=== PATIENT | male | born 1955 | race Caucasian/White ===

== ENCOUNTER 2019-09-05 20:49 | Inpatient (IN) | payer OTHER, SELFPAY ==
[2019-09-05 21:26] LABS: Absolute Lymphocytes (CBC) 0.8 K/uL (0.7-4.9); Basophils % 0.1 % (0-1.3); Hematocrit 40.5 % (39.6-49.0); Lymphocytes % 4.4 % (15.3-44.8); MPV 8.1 fL (7.6-11.3); RBC Red Blood Cell Count 4.55 M/uL (4.33-5.43)
--- NOTE | 2019-09-05 21:33 | RAD REPORT ---
EXAM DESCRIPTION: CT - CTHCSPWOC - 09/05/2019 9:20 pm CLINICAL HISTORY: Trauma, head and neck injury. trauma COMPARISON: No comparisons TECHNIQUE: Axial 5 mm thick images of the head were obtained. Axial 2 mm thick images of the cervical spine were obtained with sagittal and coronal reconstruction images generated and reviewed. All CT scans are performed using dose optimization technique as appropriate and may include automated exposure control or mA/KV adjustment according to patient size. FINDINGS: CT HEAD WITHOUT CONTRAST: No acute hemorrhage, hydrocephalus or extra-axial collection is identified.No areas of brain edema or midline shift. Moderate chronic sinusitis left maxillary antrum.The calvarium is intact. Moderate left-sided scalp h ematoma. CT CERVICAL SPINE WITHOUT CONTRAST: No fracture or subluxation.Mild multilevel cervical degenerative changes seen mid cervical levels.No prevertebral soft tissues swelling is identified. IMPRESSION: No acute intracranial or cervical spine findings.
[2019-09-05 21:36] LABS: Potassium 4.3 mmol/L (3.5-5.1)
[2019-09-05 21:52] LABS: Blood Morphology Comment NOT SEEN (NOT SEEN); Platelet Estimate ADEQ; Urine White Blood Cell Casts OK
[2019-09-05] MEDS ORDERED: ACETAMINOPHEN 500 MG TAB ONE (22:42)
[2019-09-06] MEDS ORDERED: ONDANSETRON 4 MG/2 ML VIAL ONE (01:18)
[2019-09-06] MEDS ORDERED: MORPHINE 4 MG/ML SYR ONE (01:18)
--- NOTE | 2019-09-06 03:34 | P.HP ---
Certification for Inpatient Patient admitted to: Inpatient With expected LOS: >2 Midnights Practitioner: I am a practitioner with admitting privileges, knowledge of patient current condition, hospital course, and medical plan of care. Services: Services provided to patient in accordance with Admission requirements found in Title 42 Section 412.3 of the Code of Federal Regulations Patient History Date of Service: 09/06/19 Reason for admission: fall History of Present Illness: 64-year-old gentleman with a history of hypertension was brought to the emergency department after a fall at home. Patient reports falling from a 6 foot height, landed on his left side, sustained bruise to the left forehead and pain in the left left. He stated he could not get up and walk. She crawled to call 911. EMS brought him to the emergency department. Imaging done in the ED showed multiple left rib fractures-4th through 7 th ribs, no pneumothorax. Patient not requiring oxygen. He was complaining of severe pain after IV opioid injections in the ED. Patient is admitted for pain control. - Past Medical/Surgical History -: Hypertension -: Hyperlipidemia -: Hernia surgery - Family History Family History: Reviewed- Non-Contributory - Social History Smoking Status: Never smoker Alcohol use: No CD- Drugs: No Place of Residence: Home Review of Systems Other: Except as documented, all other systems reviewed and negative. Physical Examination - Physical Exam General: Alert, Oriented x3, Moderate distress (Due to pain) HEENT: Mucous membr. moist/pink, Sclerae nonicteric Neck: Supple, JVD not distended Respiratory: Clear to auscultation bilaterally, Diminished, Other (No crackles) Cardiovascular: No edema, Regular rate/rhythm, Normal S1 S2 Capillary refill: <2 Seconds Gastrointestinal: Normal bowel sounds, Soft and benign, Non-distended, No tenderness Musculoskeletal: No swelling, No erythema Integumentary: No rashes, No erythema Neurological: Normal speech, Normal strength at 5/5 x4 extr, Cranial nerves 3-12 intact - Studies Laboratory Data (last 24 hrs) 09/05/19 21:00: WBC 17.1 H, Hgb 13.7, Hct 40.5, Plt Count 214 09/05/19 21:00: Sodium 140, Potassium 4.3, BUN 25 H, Creatinine 1.27, Glucose 161 H Assessment and Plan - Problems (Diagnosis) (1) Fall Current Visit: Yes Status: Acute (2) Rib fractures Current Visit: Yes Status: Acute (3) Hypertension Current Visit: Yes Status: Acute (4) Uncontrolled pain Current Visit: Yes Status: Acute - Plan Admit to the medical floor. IV hydration with normal saline IV Dilaudid p.r.n. for pain Supplemental oxygen as needed. Serial chest x-ray to assess for contusion. Chest physiotherapy-incentive spirometry. - Advance Directives Does patient have a Living Will: No Does patient have a Durable POA for Healthcare: No
[2019-09-06] MEDS ORDERED: ALBUTEROL 2.5 MG/3 ML NEB SOL NEB PRN (05:27)
[2019-09-06] MEDS ORDERED: ACETAMINOPHEN 500 MG TAB PO PRN (05:27)
[2019-09-06] MEDS ORDERED: ONDANSETRON 4 MG/2 ML VIAL IV PRN (05:27)
[2019-09-06] MEDS: NA CHLORIDE 0.9% 1,000 ML IV SCH ×2 (05:55→17:52)
[2019-09-06] MEDS: HYDROMORPHONE HCL 2 MG/ML inj IV PRN ×3 (05:55→17:52)
[2019-09-06 06:58] VITALS: BMI 28.6
--- NOTE | 2019-09-06 12:47 | RAD REPORT ---
EXAM DESCRIPTION: CT - Chest Abdomen Pelvis W Cont - 09/06/2019 3:08 am CLINICAL HISTORY: The patient is 64 years old and is Male; TRAUMA TECHNIQUE: Axial computed tomography images of the chest, abdomen and pelvis with intravenous contra st. Sagittal and coronal reformatted images were created and reviewed. This CT exam was performed using one or more of the following dose reduction techniques: automated exposure control, adjustme nt of the mA and/or kV according to patient size, and/or use of iterative reconstruction technique. DLP: 1699 mGy*cm COMPARISON: None. FINDINGS: CHEST: LUNGS: Dependent subsegmental atelectasis versus scarring bilaterally. Left lung base contusions c ould have similar imaging characteristics. No focal consolidation. PLEURAL SPACE: Mild bibasilar pleural thickening. No pleural effusion or pneumothorax. HEART: Unremarkable. No cardiomegaly. No significant pericardial effusion. THYROID: Visualized thyroid is normal. ABDOMEN: LIVER: Mild hepatic steatosis. GALLBLADDER AND BILE DUCTS: Unremarkable. No calcified stones. No ductal dilation. PANCREAS: Unremarkable. No ductal dilation. No mass. SPLEEN: Unremarkable. No splenomegaly. ADRENALS: Unremarkable. No mass. KIDNEYS AND URETERS: Unremarkable. No hydronephrosis. No solid mass. STOMACH AND BOWEL: Trace sigmoid colon diverticulosis. No acute diverticulitis. No obstruction or mucosal thickening. PELVIS: APPENDIX: The appendix is seen and is within normal limits. BLADDER: Unremarkable. No mass. REPRODUCTIVE: Unremarkable as visualized. CHEST, ABDOMEN and PELVIS: INTRAPERITONEAL SPACE: Unremarkable. No significant fluid collection. No free air. BONES/JOINTS: Minimally displaced fractures of the lateral left fourth, fifth, sixth, and seventh ribs. No dislocation. Multilevel degenerative degenerative disease with scattered vacuum phenomenon. Small anterolisthesis of L5 on S1. SOFT TISSUES: Prior left inguinal hernia repair. VASCULATURE: Unremarkable. No aortic aneurysm. LYMPH NODES: Unremarkable. No enlarged lymph nodes. IMPRESSION: 1. Acute minimally displaced fractures of the lateral left fourth through seventh ribs . Bibasilar atelectasis, scarring or contusions. 2. No posttraumatic abdominal or pelvic abnormality. 3. Trace sigmoid colon diverticulosis. No acute diverticulitis. 4. Mild hepatic steatosis. Electronically signed by: Franco Tony DO 09/05/2019 10:43 PM CDT Due to temporary technical issues with the PACS/Fluency reporting system, reports are being signed by the in house radiologist without review as a courtesy to ensure prompt reporting. The interpreting r adiologist is fully responsible for the content of the report.
[2019-09-06 14:26] LABS: Urine Appearance CLEAR; Urine Bilirubin NEGATIVE (NEG); Urine Blood NEGATIVE (NEG); Urine Color YELLOW; Urine Glucose NEGATIVE (NEG); Urine Microscopic Reflex NO UMIC; Urine Protein NEGATIVE (NEG); Urine Specific Gravity >=1.030 (1.005-1.030); Urine Urobilinogen 0.2 mg/dL (0.2-1.0); Urine pH 5.5 (5.0-7.0)
[2019-09-07] MEDS: NA CHLORIDE 0.9% 1,000 ML IV SCH ×3 (01:38→20:03)
[2019-09-07 06:31] LABS: Absolute Lymphocytes (CBC) 1.2 K/uL (0.7-4.9); Basophils % 0.3 % (0-1.3); Hematocrit 34.2 % (39.6-49.0); Lymphocytes % 14.6 % (15.3-44.8); MPV 8.1 fL (7.6-11.3); RBC Red Blood Cell Count 3.86 M/uL (4.33-5.43)
[2019-09-07 06:39] LABS: Magnesium 2.5 mg/dL (1.8-2.4); Phosphorus 2.6 mg/dL (2.5-4.9)
[2019-09-07] MEDS: HYDROMORPHONE HCL 2 MG/ML inj IV PRN ×3 (07:18→16:28)
--- NOTE | 2019-09-07 07:44 | RAD REPORT ---
EXAM DESCRIPTION: RAD - Chest Single View - 09/07/2019 6:38 am CLINICAL HISTORY: Follow up rib fractures, shortness of breath COMPARISON: CT chest imaging September 04 TECHNIQUE: AP portable chest image was obtained 09/07/2019 6:38 am . FINDINGS: Lung volumes are relatively low. No pulmonary contusion seen. No focal lung parenchymal pr ocess seen. Heart and vasculature are normal. No pneumothorax has developed. No new rib abnormality s een. Rib detail is limited on portable imaging. No acute aortic findings suspected. IMPRESSION: No pneumothorax has developed. No pulmonary contusion or acute lung parenchymal process.
[2019-09-07] MEDS ORDERED: TELMISARTAN PO SCH (09:00)
[2019-09-07] MEDS: CITALOPRAM 10 MG TABLET PO SCH (09:26)
--- NOTE | 2019-09-07 09:54 | P.PN ---
Subjective Date of Service: 09/07/19 Chief Complaint: fall Patient complained of persistent left-sided chest pain. He has difficulty getting up from bed due to the pain. Repeat chest x-ray reviewed: No contusion or pneumothorax. Physical Examination - Vital Signs Temperature: 98.7 F Blood Pressure: 141/82 Pulse: 75 Respirations: 16 Pulse Ox (%): 96 - Physical Exam General: Alert, In no apparent distress HEENT: Mucous membr. moist/pink Neck: Supple, JVD not distended Respiratory: Clear to auscultation bilaterally, Normal air movement Cardiovascular: No edema, Regular rate/rhythm, Normal S1 S2 Gastrointestinal: Normal bowel sounds, Soft and benign, No tenderness Musculoskeletal: No swelling, No erythema Neurological: Normal strength at 5/5 x4 extr Assessment And Plan - Current Problems (Diagnosis) (1) Fall Current Visit: Yes Status: Acute (2) Rib fractures Current Visit: Yes Status: Acute (3) Hypertension Current Visit: Yes Status: Acute (4) Uncontrolled pain Current Visit: Yes Status: Acute - Plan Continue IV hydration with normal saline IV Dilaudid p.r.n. for pain. Added IV Toradol today Supplemental oxygen as needed. Repeat chest x-ray: No contusion or pneumothorax Continue incentive spirometry. PT and OT to evaluate for mobility.
[2019-09-07] MEDS: LIDOCAINE 4% PATCH TOP SCH (13:02)
[2019-09-07] MEDS: KETOROLAC 30 MG/ML INJ IV PRN ×2 (13:03→20:04)
--- NOTE | 2019-09-07 18:28 | ER ---
Nurse's Notes [facility] Name: Freedom Castrejon Age: 64 yrs Sex: Male : 1955 Arrival Date: 09/05/2019 Time: 20:50 Bed 15 Private MD: Diagnosis: Multiple fractures of ribs, left side Presentation: 09/04 20:50 Chief complaint: EMS states: Fall from approx 5 ft off of a rooftop scaffolding, pt sg reports possible LOC he cant recall all of the events after falling, reports he was laying on the ground for 3-4 hours after fall until family/friend came home from work. C/O pain to the neck, left sided back, left sided rib pain left sided flank pain, abrasions and skin tears noted, reports having left anterior chest wall pain with pain to the abdomen as well, reports nausea. Care prior to arrival: IV initiated. 20 GA, in the left antecubital area. Care prior to arrival: Cervical collar in place. Placed on backboard. Mechanism of Injury: Fall from roof. Trauma event details: Injury occurred in the [facility], Injury occurred: at home. Injury occurred: September 05, 2019. 20:50 Acuity: SALINA 2 sg 20:50 Method Of Arrival: EMS: [facility] sg 21:10 Coronavirus screen: Proceed with normal triage. Ebola Screen: No symptoms or risks ea identified at this time. Initial Sepsis Screen: Does the patient meet any 2 criteria? No. Patient's initial sepsis screen is negative. Does the patient have a suspected source of infection? No. Patient's initial sepsis screen is negative. Risk Assessment: Do you want to hurt yourself or someone else? Patient reports no desire to harm self or others. Onset of symptoms was September 05, 2019. Trauma Activation: Alert Physician: ED Physician; Name: ; Notified At: ; Arrived At: Physician: General Surgeon; Name: ; Notified At: ; Arrived At: Physician: Radiology; Name: ; Notified At: ; Arrived At: Physician: Respiratory; Name: ; Notified At: ; Arrived At: Physician: Lab; Name: ; Notified At: ; Arrived At: Historical: - Allergies: 20:55 No Known Allergies; sg - Home Meds: 20:55 Blood pressure medication [Active]; sg - PMHx: 20:55 Hypertension; sg - Immunization history: Last tetanus immunization: unknown. - Social history:: Smoking status: Patient denies any tobacco usage or history of. Screenin:57 Abuse screen: Denies threats or abuse. Denies injuries from another. Tuberculosis sg screening: No symptoms or risk factors identified. 21:11 Nutritional screening: No deficits noted. Fall Risk IV access (20 points). ea Primary Survey: 20:50 NO uncontrolled hemorrhage observed. A: The patient is alert. Airway: patent, No sg supplemental oxygen in use on arrival. Oral cavity: clear. Breathing/Chest: Respiratory pattern: regular, Respiratory effort: spontaneous, unlabored, Breath sounds: clear, Chest inspection: symmetrical rise and fall of the chest. Circulation: Heart tones present. Pulses: palpable right radial artery, right popliteal artery, left radial artery and left popliteal artery. Skin color: pink, Skin temperature: warm, dry. Disability Alert. Exposure/Environment: All clothing and personal items were removed. Forensic evidence collection is not deemed to be indicated at this time. Items placed in patient belonging bag. There is no evidence of uncontrolled external bleeding. Obvious injury(ies) are noted at this time: neck, back, chest. 22:00 Reassessment Airway Airway Patent Breathing/Chest Respiratory pattern Regular ea Respiratory effort Spontaneous Unlabored Disability Alert. Secondary Survey: 20:50 HEENT: Head No injury/deformity Face No injury/deformity Eyes: No injury or deformity sg noted. Ears: clear bilaterally. Gastrointestinal: Abdomen is soft, bruised left lower quadrant Patient vomited prior to arrival. : No signs and/or symptoms were reported regarding the genitourinary system. Musculoskeletal: Circulation, motion, and sensation intact. Range of motion: intact in all extremities. Assessment: 21:00 General: Appears uncomfortable, Behavior is appropriate for age. Pain: Complains of ea pain in back. Neuro: Level of Consciousness is awake, alert, obeys commands, Oriented to person, place, situation. Cardiovascular: Patient's skin is warm and dry. Respiratory: Airway is patent Respiratory effort is even, unlabored, Respiratory pattern is regular, symmetrical. Derm: Bruising that is dark purple, on right arm, left arm, right leg and left leg. Musculoskeletal: Reports pain in back. 21:19 Reassessment: Returned from CT. ea 21:53 Reassessment: Patient and/or family updated on plan of care and expected duration. Pain ea level reassessed. Patient is alert, oriented x 3, equal unlabored respirations, skin warm/dry/pink. Pt taken to CT. 21:56 Reassessment: Daughter Alla . ea 22:37 Reassessment: Patient and/or family updated on plan of care and expected duration. Pain ea level reassessed. Patient is alert, oriented x 3, equal unlabored respirations, skin warm/dry/pink. 23:12 Reassessment: Patient and/or family updated on plan of care and expected duration. Pain ea level reassessed. Patient is alert, oriented x 3, equal unlabored respirations, skin warm/dry/pink. 09/05 00:39 Reassessment: Patient and/or family updated on plan of care and expected duration. Pain ea level reassessed. Patient is alert, oriented x 3, equal unlabored respirations, skin warm/dry/pink. 01:30 Reassessment: Patient and/or family updated on plan of care and expected duration. Pain ea level reassessed. Patient is alert, oriented x 3, equal unlabored respirations, skin warm/dry/pink. 02:00 Reassessment: Patient and/or family updated on plan of care and expected duration. Pain ea level reassessed. Pt resting with eyes closed, respirations even and unlabored. Chest expansions even and symmetrical. 03:00 Reassessment: Patient and/or family updated on plan of care and expected duration. Pain ea level reassessed. Pt resting with eyes closed, respirations even and unlabored, chest expansions even and and symmetrical. 04:49 Reassessment: Patient and/or family updated on plan of care and expected duration. Pain ea level reassessed. Patient is alert, oriented x 3, equal unlabored respirations, skin warm/dry/pink. Pt admitted to fourth floor, left ED via stretcher per tech. Pt tolerating well. Vital Signs: 09/04 20:57 BP 158 / 92; Pulse 90; Resp 20; Temp 98.1; Pulse Ox 100% on R/A; Weight 111.13 kg; sg Height 5 ft. 10 in. (177.80 cm); Pain 3/10; 21:54 BP 150 / 77; Pulse 88; Resp 18; Pulse Ox 98% on R/A; ea 22:37 BP 153 / 79; Pulse 89; Resp 18; Pulse Ox 100% on R/A; ea 23:12 BP 140 / 90; Pulse 96; Resp 18; Pulse Ox 100% on R/A; ea 09/05 00:46 BP 122 / 73; Pulse 91; Resp 18; Pulse Ox 99% on R/A; ea 02:24 BP 122 / 73; Pulse 80; Resp 18; Pulse Ox 98% ; ea 03:30 BP 126 / 78; Pulse 90; Resp 18; Pulse Ox 98% on R/A; ea 03:30 BP 130 / 68; Pulse 88; Resp 18; Temp 97.8; Pulse Ox 99% ; ea 09/04 20:57 Body Mass Index 35.15 (111.13 kg, 177.80 cm) sg Salem Coma Score: 09/04 20:57 Eye Response: spontaneous(4). Verbal Response: oriented(5). Motor Response: obeys sg commands(6). Total: 15. 21:54 Eye Response: spontaneous(4). Verbal Response: oriented(5). Motor Response: obeys ea commands(6). Total: 15. 22:37 Eye Response: spontaneous(4). Verbal Response: oriented(5). Motor Response: obeys ea commands(6). Total: 15. 23:12 Eye Response: spontaneous(4). Verbal Response: oriented(5). Motor Response: obeys ea commands(6). Total: 15. 09/05 00:47 Eye Response: spontaneous(4). Verbal Response: oriented(5). Motor Response: obeys ea commands(6). Total: 15. 02:24 Eye Response: spontaneous(4). Verbal Response: oriented(5). Motor Response: obeys ea commands(6). Total: 15. Trauma Score (Adult): 09/04 20:57 Eye Response: spontaneous(1); Verbal Response: oriented(1); Motor Response: obeys sg commands(2); Systolic BP: > 89 mm Hg(4); Respiratory Rate: 10 to 29 per min(4); Salem Score: 15; Trauma Score: 12 ED Course: 20:50 Patient arrived in ED. sg 20:52 Corby Osei MD is Attending Physician. [facility] 20:54 Triage completed. sg 20:57 Patient has correct armband on for positive identification. Bed in low position. Call sg light in reach. 21:03 Tiara Reyes, RN is Primary Nurse. ea 21:10 Patient maintains SpO2 saturation greater than 95% on room air. ea 21:11 Arm band placed on right wrist. Patient placed in an exam room, on a stretcher, on ea pulse oximetry. 21:11 Thermoregulation: warm blanket given to patient. ea 21:16 Patient moved back from CT. Patient moved back from radiology. sg 21:20 CT Head C Spine In Process Unspecified. EDMS 21:22 Contact Information : [place]- [phone]. [place] 22:25 CT Chest, Abdomen, Pelvis - W/Contrast In Process Unspecified. EDNC 09/05 02:03 Jc Mendoza is Hospitalizing Provider. [facility] 02:24 No provider procedures requiring assistance completed. Patient admitted, IV remains in ea place. Administered Medications: 09/04 21:05 Drug: Zofran (Ondansetron) 4 mg Route: IVP; Site: left antecubital; ea 22:38 Follow up: Response: No adverse reaction; Nausea is decreased ea 22:39 Drug: Tylenol 1000 mg Route: PO; ea 23:26 Follow up: Response: No adverse reaction 09/05 01:12 Drug: Zofran (Ondansetron) 4 mg Route: IVP; Site: left antecubital; ea 02:30 Follow up: Response: No adverse reaction; Nausea is decreased ea 01:14 Drug: morphine 4 mg Route: IVP; Site: right antecubital; ea 02:30 Follow up: Response: No adverse reaction; Pain is decreased; RASS: Alert and Calm (0) ea Intake: 09/04 20:57 PO: 0ml; Total: 0ml. sg Outcome: 09/05 02:04 Decision to Hospitalize by Provider. [email or web address] 02:24 pt admittedPatient's length of stay extended due to ea 02:25 Instructed on the need for admit, Demonstrated understanding of instructions. ea 04:32 Admitted to Tele accompanied by tech, via stretcher, room 431, with chart, Report sg called to Erin SALMON 04:32 Condition: good 04:50 Patient left the ED. ea Signatures: Dispatcher [employer] EDMS Eliazar Salas, Polina Walker RN, mt, Elena RN RN Corby Sanchez MD MD [email or web address]
--- NOTE | 2019-09-07 18:29 | EDPHYS ---
Physician Documentation [facility] Name: Freedom Castrejon Age: 64 yrs Sex: Male : 1955 Arrival Date: 09/05/2019 Time: 20:50 Bed 15 Private MD: ED Physician Corby Osei HPI: 09/04 21:03 This 64 yrs old Male presents to ER via EMS with complaints of Fall Injury. mh7 21:03 Details of fall: The patient fell from a height, off scaffolding, approximately 6 feet. mh7 Onset: The symptoms/episode began/occurred just prior to arrival, today. Associated injuries: The patient sustained injury to the head, contusion, swelling, tenderness. 21:08 Associated injuries: The patient sustained injury to the abdomen, specifically the left mh7 lower quadrant, tenderness, right arm, contusion, ecchymosis, left arm, contusion, ecchymosis, left upper back, painful injury. Severity of symptoms: At their worst the symptoms were moderate, just prior to arrival, in the emergency department the symptoms have improved, moderately. Historical: - Allergies: 20:55 No Known Allergies; sg - Home Meds: 20:55 Blood pressure medication [Active]; sg - PMHx: 20:55 Hypertension; sg - Immunization history: Last tetanus immunization: unknown. - Social history:: Smoking status: Patient denies any tobacco usage or history of. ROS: 21:08 Constitutional: Negative for fever, chills, and weight loss, Eyes: Negative for injury, mh7 pain, redness, and discharge, ENT: Negative for injury, pain, and discharge, Cardiovascular: Negative for chest pain, palpitations, and edema, Respiratory: Negative for shortness of breath, cough, wheezing, and pleuritic chest pain, : Negative for injury, bleeding, discharge, and swelling, Skin: Negative for injury, rash, and discoloration, Neuro: Negative for headache, weakness, numbness, tingling, and seizure, Psych: Negative for depression, anxiety, suicide ideation, homicidal ideation, and hallucinations, Allergy/Immunology: Negative for hives, rash, and allergies, Endocrine: Negative for neck swelling, polydipsia, polyuria, polyphagia, and marked weight changes, Hematologic/Lymphatic: Negative for swollen nodes, abnormal bleeding, and unusual bruising. Exam: 21:08 Constitutional: This is a well developed, well nourished patient who is awake, alert, mh7 and in no acute distress. 21:08 Eyes: Pupils equal round and reactive to light, extra-ocular motions intact. Lids and lashes normal. Conjunctiva and sclera are non-icteric and not injected. Cornea within normal limits. Periorbital areas with no swelling, redness, or edema. ENT: Nares patent. No nasal discharge, no septal abnormalities noted. Tympanic membranes are normal and external auditory canals are clear. Oropharynx with no redness, swelling, or masses, exudates, or evidence of obstruction, uvula midline. Mucous membranes moist. Neck: Trachea midline, no thyromegaly or masses palpated, and no cervical lymphadenopathy. Supple, full range of motion without nuchal rigidity, or vertebral point tenderness. No Meningismus. Chest/axilla: Normal chest wall appearance and motion. Nontender with no deformity. No lesions are appreciated. Cardiovascular: Regular rate and rhythm with a normal S1 and S2. No gallops, murmurs, or rubs. Normal PMI, no JVD. No pulse deficits. Respiratory: Lungs have equal breath sounds bilaterally, clear to auscultation and percussion. No rales, rhonchi or wheezes noted. No increased work of breathing, no retractions or nasal flaring. 21:08 Skin: Warm, dry with normal turgor. Normal color with no rashes, no lesions, and no evidence of cellulitis. 21:08 Neuro: Awake and alert, GCS 15, oriented to person, place, time, and situation. Cranial nerves II-XII grossly intact. Motor strength 5/5 in all extremities. Sensory grossly intact. Cerebellar exam normal. Normal gait. Psych: Awake, alert, with orientation to person, place and time. Behavior, mood, and affect are within normal limits. 21:08 Head/face: Noted is abrasion(s), that are mild, of the forehead, contusion, that is superficial, of the forehead. 21:08 Abdomen/GI: Inspection: abdomen appears normal, Bowel sounds: normal, in all quadrants, Palpation: moderate abdominal tenderness, in the left upper quadrant, Rectal exam: Indicators: McBurney's point is not tender, Kan's sign is negative, Rovsing's sign is negative, Obturator sign is negative, Psoas sign is negative, Liver: no appreciated palpable abnormalities, Hernia: not appreciated. 21:08 Back: pain, that is mild, of the left subscapular area, ROM is painless, normal spinal alignment noted, CVA tenderness, is absent, vertebral tenderness, is not appreciated, muscle spasm, is not present. 21:08 Musculoskeletal/extremity: Extremities: noted in the right arm: contusion, ecchymosis, noted in the left arm: contusion, ecchymosis, ROM: intact in all extremities, Circulation is intact in all extremities. Pulses: are normal with no appreciated deficits, Perfusion: the patient is normally perfused throughout, Perfusion: the extremity is normally perfused throughout, Calf tenderness, is absent, Edema, is not appreciated, Sensation intact. Compartment Syndrome exam of affected extremity: is normal. no numbness, no tingling, no sensation deficit, no palor, no weak pulses, Joints: All joints appear normal with full range of motion. Vital Signs: 20:57 BP 158 / 92; Pulse 90; Resp 20; Temp 98.1; Pulse Ox 100% on R/A; Weight 111.13 kg; sg Height 5 ft. 10 in. (177.80 cm); Pain 3/10; 21:54 BP 150 / 77; Pulse 88; Resp 18; Pulse Ox 98% on R/A; ea 22:37 BP 153 / 79; Pulse 89; Resp 18; Pulse Ox 100% on R/A; ea 23:12 BP 140 / 90; Pulse 96; Resp 18; Pulse Ox 100% on R/A; ea 09/05 00:46 BP 122 / 73; Pulse 91; Resp 18; Pulse Ox 99% on R/A; ea 02:24 BP 122 / 73; Pulse 80; Resp 18; Pulse Ox 98% ; ea 03:30 BP 126 / 78; Pulse 90; Resp 18; Pulse Ox 98% on R/A; ea 03:30 BP 130 / 68; Pulse 88; Resp 18; Temp 97.8; Pulse Ox 99% ; ea 09/04 20:57 Body Mass Index 35.15 (111.13 kg, 177.80 cm) sg Rochester Coma Score: 09/04 20:57 Eye Response: spontaneous(4). Verbal Response: oriented(5). Motor Response: obeys sg commands(6). Total: 15. 21:54 Eye Response: spontaneous(4). Verbal Response: oriented(5). Motor Response: obeys ea commands(6). Total: 15. 22:37 Eye Response: spontaneous(4). Verbal Response: oriented(5). Motor Response: obeys ea commands(6). Total: 15. 23:12 Eye Response: spontaneous(4). Verbal Response: oriented(5). Motor Response: obeys ea commands(6). Total: 15. 09/05 00:47 Eye Response: spontaneous(4). Verbal Response: oriented(5). Motor Response: obeys ea commands(6). Total: 15. 02:24 Eye Response: spontaneous(4). Verbal Response: oriented(5). Motor Response: obeys ea commands(6). Total: 15. Trauma Score (Adult): 09/04 20:57 Eye Response: spontaneous(1); Verbal Response: oriented(1); Motor Response: obeys sg commands(2); Systolic BP: > 89 mm Hg(4); Respiratory Rate: 10 to 29 per min(4); [place] Score: 15; Trauma Score: 12 MDM: 21:00 Patient medically screened. [facility] 09/05 02:02 Differential diagnosis: closed head injury, contusion, fracture. Data reviewed: [facility] signs, nurses notes, EMS record, lab test result(s), CBC, electrolytes, radiologic studies, CT scan, plain films. 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 Interpretation: normal. Counseling: I had a detailed discussion with the patient and/or guardian regarding: the historical points, exam findings, and any diagnostic results supporting the discharge/admit diagnosis, lab results, radiology results, the need for further work-up and treatment in the hospital. 09/04 21: Order name: Basic Metabolic Panel; Complete Time: 21:44 [facility] 09/04 21: Order name: CBC with Diff; Complete Time: 22:41 [facility] 09/04 21:01 Order name: Type And Screen; Complete Time: 22:41 [facility] 09/04 21: Order name: CT Head C Spine; Complete Time: 21:44 [facility] 09/04 21:30 Order name: CBC Smear Scan; Complete Time: 22:41 [facility] 09/04 21:01 Order name: Labs collected and sent; Complete Time: 21:18 [facility] 09/04 21:01 Order name: Saline Lock; Complete Time: 21:18 [facility] 09/04 21:20 Order name: CT Chest, Abdomen, Pelvis - W/Contrast [facility] Administered Medications: 09/04 21:05 Drug: Zofran (Ondansetron) 4 mg Route: IVP; Site: left antecubital; ea 22:38 Follow up: Response: No adverse reaction; Nausea is decreased ea 22:39 Drug: Tylenol 1000 mg Route: PO; ea 23:26 Follow up: Response: No adverse reaction 09/05 01:12 Drug: Zofran (Ondansetron) 4 mg Route: IVP; Site: left antecubital; ea 02:30 Follow up: Response: No adverse reaction; Nausea is decreased ea 01:14 Drug: morphine 4 mg Route: IVP; Site: right antecubital; ea 02:30 Follow up: Response: No adverse reaction; Pain is decreased; RASS: Alert and Calm (0) ea Disposition: 09/06/19 02:04 Hospitalization ordered by Jc Mendoza for Observation. Preliminary diagnosis is Multiple fractures of ribs, left side. - Bed requested for Telemetry/MedSurg (observation). - Status is Observation. ea - Condition is Stable. - Problem is new. - Symptoms have improved. Signatures: Dispatcher [employer] [facility] Eliazar Salas RN RN sg Garcia, Cindy, RN RN Tiara Reyes RN RN ea Holmes, Maurice, MD MD 7 Corrections: (The following items were deleted from the chart) 01:09/04 21:03 Humerus Left+RAD.RAD.BRZ ordered. [facility] 09/05 01:30 09/04 21:03 Humerus Right+RAD.RAD.BRZ ordered. [facility] 09/05 03:30 02:04 Hospitalization Ordered by Jc Mendoza for Observation. Preliminary diagnosis cg is Multiple fractures of ribs, left side. Bed requested for Telemetry/MedSurg (observation). Status is Observation. Condition is Stable. Problem is new. Symptoms have improved. [facility] 04:50 03:30 09/06/2019 02:04 Hospitalization Ordered by Jc Mendoza for Observation. ea Preliminary diagnosis is Multiple fractures of ribs, left side. Bed requested for Telemetry/MedSurg (observation). Status is Observation. Condition is Stable. Problem is new. Symptoms have improved.
[2019-09-07] MEDS ORDERED: ATORVASTATIN 40 MG TAB PO SCH (21:00)
[2019-09-08] MEDS: KETOROLAC 30 MG/ML INJ IV PRN ×3 (02:04→13:44)
[2019-09-08] MEDS: NA CHLORIDE 0.9% 1,000 ML IV SCH (07:27)
[2019-09-08] MEDS ORDERED: TRAMADOL HCL 50 MG TAB PO PRN (07:42)
[2019-09-08] MEDS: LIDOCAINE 4% PATCH TOP SCH (08:05)
[2019-09-08] MEDS: CITALOPRAM 10 MG TABLET PO SCH (08:05)
[2019-09-08] MEDS ORDERED: TIZANIDINE 4 MG TABLET PO SCH (09:00)
[2019-09-08] MEDS ORDERED: ENOXAPARIN 40 MG/0.4 ML SQ SCH (09:00)
[2019-09-08 09:56] VITALS: O2SAT 99
[2019-09-08] MEDS: CODEINE 30MG/APAP 300MG TAB PO PRN ×2 (10:18→14:26)
--- NOTE | 2019-09-08 11:50 | P.DS ---
Admission Date: 09/06/19 Discharge Date: 09/08/19 Primary Care Provider: Dr. Andino Disposition: ROUTINE DISCHARGE Discharge Condition: GOOD Reason for Admission: fall Consultations: none Procedures: CT Head: COMPARISON: No comparisons TECHNIQUE: Axial 5 mm thick images of the head were obtained. Axial 2 mm thick images of the cervical spine were obtained with sagittal and coronal reconstruction images generated and reviewed. All CT scans are performed using dose optimization technique as appropriate and may include automated exposure control or mA/KV adjustment according to patient size. FINDINGS: CT HEAD WITHOUT CONTRAST: No acute hemorrhage, hydrocephalus or extra-axial collection is identified.No areas of brain edema or midline shift. Moderate chronic sinusitis left maxillary antrum.The calvarium is intact. Moderate left-sided scalp hematoma. CT CERVICAL SPINE WITHOUT CONTRAST: No fracture or subluxation.Mild multilevel cervical degenerative changes seen mid cervical levels.No prevertebral soft tissues swelling is identified. IMPRESSION: No acute intracranial or cervical spine findings. CT Scan: COMPARISON: None. FINDINGS: CHEST: LUNGS: Dependent subsegmental atelectasis versus scarring bilaterally. Left lung base contusions could have similar imaging characteristics. No focal consolidation. PLEURAL SPACE: Mild bibasilar pleural thickening. No pleural effusion or pneumothorax. HEART: Unremarkable. No cardiomegaly. No significant pericardial effusion. THYROID: Visualized thyroid is normal. ABDOMEN: LIVER: Mild hepatic steatosis. GALLBLADDER AND BILE DUCTS: Unremarkable. No calcified stones. No ductal dilation. PANCREAS: Unremarkable. No ductal dilation. No mass. SPLEEN: Unremarkable. No splenomegaly. ADRENALS: Unremarkable. No mass. KIDNEYS AND URETERS: Unremarkable. No hydronephrosis. No solid mass. STOMACH AND BOWEL: Trace sigmoid colon diverticulosis. No acute diverticulitis. No obstruction or mucosal thickening. PELVIS: APPENDIX: The appendix is seen and is within normal limits. BLADDER: Unremarkable. No mass. REPRODUCTIVE: Unremarkable as visualized. CHEST, ABDOMEN and PELVIS: INTRAPERITONEAL SPACE: Unremarkable. No significant fluid collection. No free air. BONES/JOINTS: Minimally displaced fractures of the lateral left fourth, fifth, sixth, and seventh ribs. No dislocation. Multilevel degenerative degenerative disease with scattered vacuum phenomenon. Small anterolisthesis of L5 on S1. SOFT TISSUES: Prior left inguinal hernia repair. VASCULATURE: Unremarkable. No aortic aneurysm. LYMPH NODES: Unremarkable. No enlarged lymph nodes. IMPRESSION: 1. Acute minimally displaced fractures of the lateral left fourth through seventh ribs. Bibasilar atelectasis, scarring or contusions. 2. No posttraumatic abdominal or pelvic abnormality. 3. Trace sigmoid colon diverticulosis. No acute diverticulitis. 4. Mild hepatic steatosis. 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 Patient landed on the left side. Patient admitted due to intractable pain. Patient found to have multiple fractures of the left lateral ribs and a scalp hematoma. Hospital Course: Patient presented after a fall from scaffolding 6 foot high. Patient found to have acute minimally displaced fractures of the lateral left 4th through 7th ribs and a moderate left-sided scalp hematoma. Patient was admitted due to intractable pain. During the course of his stay pain improved. Pain is better controlled at discharge. At discharge home health and physical therapy will be arranged. Fall precautions address. At discharge patient will continue with incentive spirometer. The patient will also be provided Pro air 2 puffs 3 times a day as needed for shortness of breath. For pain and muscle spasm, the patient will be provided a limited supply of Tylenol with codeine 1 pill 3 times a day as needed for pain, dispense 10 pills and Zanaflex 4 mg 1 pill twice daily as needed for muscle spasm, dispense 6 pills. Both medications will be called in. The patient will also be provided a lidocaine patch to be placed daily to the site of pain. Recommend follow up with PCP in 1 week to follow up this hospitalization. No work until released by PCP. Patient with hypertension. This has remained stable. At discharge he will continue with his medication of telmisartan 80 mg daily. Recommend to maintain blood pressure less 150/80. Further adjustment can be done by his PCP. Patient with hyperlipidemia. At discharge she will continue with Lipitor 40 mg daily. Patient with depression with anxiety. At discharge he will continue with Celexa [address] scan also revealed degenerative changes to the lumbar spine. This can be further monitored and addressed by his PCP. Fall precautions in place. No heavy lifting, pushing or pulling is recommended. CT scan also revealed fatty liver. This can be further addressed as an outpatient. Vital Signs/Physical Exam: Temp Pulse Resp BP Pulse Ox 98.7 F 72 18 169/85 H 99 09/08/19 08:00 09/08/19 08:00 09/08/19 11:31 09/08/19 08:00 09/08/19 11:31 General: Alert, In no apparent distress, Oriented x3, Cooperative HEENT: Other (Left lateral scalp hematoma) Neck: Supple Respiratory: Clear to auscultation bilaterally, Normal air movement Cardiovascular: Normal pulses, Regular rate/rhythm Gastrointestinal: Normal bowel sounds, Soft and benign, Non-distended Musculoskeletal: No warmth, Other (Tenderness to the left ribcage.) Integumentary: No erythema, No warmth, No cyanosis, Other (Small hematoma to the left scalp region) Neurological: Normal speech, Normal strength at 5/5 x4 extr, Normal tone, Normal affect Laboratory Data at Discharge: WBC 8.3 K/uL (4.3-10.9) D 09/07/19 06:04 Hgb 11.9 g/dL (13.6-17.9) L 09/07/19 06:04 Hct 34.2 % (39.6-49.0) L D 09/07/19 06:04 Plt Count 150 K/uL (152-406) L D 09/07/19 06:04 Sodium 139 mmol/L (136-145) 09/07/19 06:04 Potassium 4.0 mmol/L (3.5-5.1) 09/07/19 06:04 BUN 17 mg/dL (7-18) 09/07/19 06:04 Creatinine 0.97 mg/dL (0.55-1.3) 09/07/19 06:04 Glucose 102 mg/dL (74-106) 09/07/19 06:04 Phosphorus 2.6 mg/dL (2.5-4.9) 09/07/19 06:04 Magnesium 2.5 mg/dL (1.8-2.4) H 09/07/19 06:04 Home Medications: Atorvastatin Calcium [Lipitor] 40 mg PO BEDTIME 09/06/19 Citalopram [Celexa*] 20 mg PO DAILY 09/06/19 Telmisartan 1 tab PO DAILY 09/06/19 Albuterol Inhaler [Ventolin Inhaler*] 2 puff IH TID PRN #1 hfa.[email or web address] 09/08/19 Codeine/APAP [Tylenol #3*] 1 tab PO TID PRN #10 tab 09/08/19 Lidocaine 4% Patch [Lidoderm 5% Patch*] 1 patch TOP DAILY #30 patch 09/08/19 Tizanidine [Zanaflex*] 4 mg PO BID PRN #6 tab 09/08/19 New Medications: Lidocaine 4% Patch [Lidoderm 5% Patch*] 1 patch TOP DAILY #30 patch Codeine/APAP [Tylenol #3*] 1 tab PO TID PRN #10 tab PRN Reason: Pain Scale 5-7 (Moderate) Albuterol Inhaler [Ventolin Inhaler*] 2 puff IH TID PRN #1 hfa.[email or web address] PRN Reason: Shortness Of Breath Tizanidine [Zanaflex*] 4 mg PO BID PRN #6 tab PRN Reason: Muscle Spasms Patient Discharge Instructions: 1. Recommend follow up with PCP in 1 week to follow up this hospitalization. 2. Patient presented after a fall from scaffolding 6 foot high. Patient found to have acute minimally displaced fractures of the lateral left 4th through 7th ribs and a moderate left-sided scalp hematoma. Patient was admitted due to intractable pain. During the course of his stay pain improved. Pain is better controlled at discharge. At discharge home health and physical therapy will be arranged. Fall precautions address. At discharge patient will continue with incentive spirometer. The patient will also be provided Pro air 2 puffs 3 times a day as needed for shortness of breath. For pain and muscle spasm, the patient will be provided a limited supply of Tylenol with codeine 1 pill 3 times a day as needed for pain, dispense 10 pills and Zanaflex 4 mg 1 pill twice daily as needed for muscle spasm, dispense 6 pills. Both medications will be called in. The patient will also be provided a lidocaine patch to be placed daily to the site of pain. Recommend follow up with PCP in 1 week to follow up this hospitalization. No work until released by PCP. 3. Patient with hypertension. This has remained stable. At discharge he will continue with his medication of telmisartan 80 mg daily. Recommend to maintain blood pressure less 150/80. Further adjustment can be done by his PCP. 4. Patient with hyperlipidemia. At discharge she will continue with Lipitor 40 mg daily. 5. Patient with depression with anxiety. At discharge he will continue with Celexa [address] scan also revealed degenerative changes to the lumbar spine. This can be further monitored and addressed by his PCP. Fall precautions in place. No heavy lifting, pushing or pulling is recommended. 7. Patient also has fatty liver. Education provided. Recommend follow up with GI in the future to further evaluate. Diet: AHA Activity: Fall precautions Time spent managing pt's care (in minutes): 55
[2019-09-08 12:11] VITALS: BP 168/86; TEMP 98.4
== END 2019-09-08 16:08 | disposition home health service (06) | DRG 206 ==
LOC: ER 20:49 → ERHOLD 09-06 03:25 → 4TH 09-06 04:26
PROVIDERS: ADMIT Internal Medicine; ATTEND Family Medicine
DX: S22.32XA Fracture of one rib, left side, initial encounter for closed fracture (principal); S00.03XA Contusion of scalp, initial encounter; I10 Essential (primary) hypertension; E78.5 Hyperlipidemia, unspecified; K76.0 Fatty (change of) liver, not elsewhere classified; F41.8 Other specified anxiety disorders; W12.XXXA Fall on and from scaffolding, initial encounter; Z79.899 Other long term (current) drug therapy
CPT/HCPCS: 36415; 70450; 71045; 71260; 72125; 74177; 80048; 81003; 83735; 84100; 85025; 86850; 86900; 86901; 97116; 97161; 97530; 99285; J1170; J1650; J2405; J7030; Q9967